=== PATIENT | male | born 1980 | race Hispanic/Latino ===

== ENCOUNTER 2018-06-17 23:25 | Emergency (ER) | payer SELFPAY ==
[~2018-06-17 23:25] MED LIST: ISOVUE-370 76%-LOCM 1 ML ONE
[2018-06-18 00:03] LABS: #Eosinphils 0.2 thou/uL (0.0-0.7); #Lymphocytes 2.9 thou/uL (1.20-3.40); #Monocytes 0.9 thou/uL (0.11-0.59); #Neutrophils 5.2 thou/uL (1.40-6.50); %Basophils 0.2 % (0.0-1.0); %Eosinophils 1.7 % (0.0-10.0); %Lymphocytes 31.7 % (21.0-51.0); %Monocytes 10.1 % (0.0-10.0); %Neutrophils 56.3 % (42.0-75.0); Hemoglobin 15.6 g/dL (14.0-18.0); Mean Corpuscular HGB CONC 36.5 g/dL (32.0-36.0); Mean Corpuscular Volume 87.8 fL (78.0-98.0); Mean Platelet Volume 7.4 fL (7.4-10.4); Platelet Count 198 thou/uL (130-400); RBC Distribution Width 11.8 % (11.5-14.5); Red Blood Cell (RBC) Count 4.88 mill/uL (4.70-6.10); White Blood Cell (WBC) Count 9.2 thou/uL (4.8-10.8)
[2018-06-18] MEDS ORDERED: Morphine 4 MG/ML VIAL ONE (00:09)
[2018-06-18 00:22] LABS: Glucose 113 mg/dL (70-105)
[2018-06-18 00:23] LABS: ALT (SGPT) 238 U/L (8-55); AST (SGOT) 108 U/L (5-34); Albumin 4.8 g/dL (3.5-5.0); Alkaline Phosphatase 91 U/L (40-150); Anion Gap 15 mmol/L (10-20); BUN (Urea Nitrogen) 22 mg/dL (8.9-20.6); Bilirubin, Total 0.7 mg/dL (0.2-1.2); Calc. Creatinine Clearance 0 mL/min (70-130); Calcium 9.5 mg/dL (7.8-10.44); Carbon Dioxide 21 mmol/L (22-29); Chloride 105 mmol/L (98-107); Estimated GFR-MDRD 65; Globulin 3.2 g/dL (2.4-3.5); Potassium 3.6 mmol/L (3.5-5.1); Sodium 137 mmol/L (136-145)
[2018-06-18 00:43] LABS: Bilirubin Negative (Negative); Blood, Urine Negative (Negative); Clarity CLEAR (Clear); Glucose, Urine (Dipstick) Negative (Negative); Leukocyte Negative (Negative); Nitrite Negative (Negative); Protein, Urine (Dipstick) Negative (Neg-Trace); Urobilinogen 0.2 mg/dL (0.2-1.0)
[2018-06-18 01:24] LABS: MONO NEGATIVE CONTROL ZONE White (Negative) (White); MONO POSITIVE CONTROL Pink Line (Positive) (PINK/RED); Mononucleosis NEGATIVE (NEGATIVE)
[2018-06-18 01:49] LABS: HBCM Index 0.11 S/CO (0-0.79); HBSAg Index 0.21 S/CO (0-0.99); Hep A IgM AB Non-Reactive (NonReactive); Hep A IgM S/CO 0.18 S/CO (0-0.79); Hep B Surf Ag Non-Reactive S/CO (NonReactive); Hep C IgG Ab Non-Reactive (NonReactive); Hep C Index 0.17 S/CO (0-0.79); Hepatitis B Core IGM Abs Non-Reactive (NonReactive)
--- NOTE | 2018-06-18 09:32 | CT ---
PRELIMINARY REPORT/[facility]/EMERGENTY AFTER-HOURS PROCEDURE CT Abdomen and Pelvis With Intravenous Contrast CLINICAL HISTORY: 37 years old, male; Pain; Abdominal pain; Localized; Lower; Patient HX: M37 presents with urinary ret ention x5 days. Pt reports he urinated once on wednesday. Pt also reports back pain, bilateral arm and leg weakness, and vomiting x2 days, and diarrhea x1 week. Pt reports chronic leg numbness and reports waking up with cold chills and sweat during the night 2 days ago. Pt reports numbness, tingli ng in groin 4-5 months ago that lasted a few minutes but denies any numbness or tingling to groin rec ently and denies impotence. Pt denies any drug use TECHNIQUE: Axial computed tomography images of the abdomen and pelvis with intravenous contrast. Coronal reformatted images were created and reviewed. COMPARISON: No relevant prior studies available. FINDINGS: Lung bases: Normal. No mass. No consolidation. ABDOMEN: Liver: Hepatic steatosis. Gallbladder and bile ducts: Normal. Pancreas: Normal. Spleen: Small low attenuation foci within the spleen, possibly cysts or hemangiomas. Adrenals: Normal. Kidneys and ureters: Normal. Stomach and bowel: Normal. PELVIS: Appendix: Appendix is normal. Bladder: Normal. Reproductive: Normal as visualized. ABDOMEN and PELVIS: Intraperitoneal space: Normal. No free air. No significant fluid collection. Bones/joints: No acute fracture. No dislocation. Soft tissues: Normal. Vasculature: Normal. No abdominal aortic aneurysm. Lymph nodes: Normal. IMPRESSION: 1. No acute findings. 2. Non-acute findings are described above. Thank you for allowing us to participate in the care of your patient. Dictated and Authenticated by: Julián Jasso MD 06/18/2018 1:14 AM Central Time ([place] & [place]) FINAL REPORT CT ABDOMEN AND PELVIS WITH IV CONTRAST: I agree with the preliminary report given by Dr. Julián Jasso of [facility]. POS: [facility]
--- NOTE | 2018-06-18 09:48 | MRI ---
PRELIMINARY REPORT/[facility]/EMERGENTY AFTER-HOURS PROCEDURE MR Lumbar Spine Without Intravenous Contrast CLINICAL HISTORY: 37 years old, male; Pain; Other: Cada equina syndrome; Patient HX: M37 presents with urinary retentio n x5 days. Pt reports he urinated once on wednesday. Pt also reports back pain, bilateral arm and leg w eakness, and vomiting x2 days, and diarrhea x1 week. Pt reports chronic leg numbness and reports waking up with cold chills and sweat during the night 2 days ago. Pt reports numbness, tingli ng in groin 4-5 months ago that lasted a few minutes but denies any numbness or tingling to groin rec ently and denies impotence. Pt denies any drug use. TECHNIQUE: Magnetic resonance images of the lumbar spine without intravenous contrast in multiple planes. COMPARISON: No relevant prior studies available. FINDINGS: Five non rib bearing vertbra are presumed to be present. Vertebral body heights are preserved. Normal lumbar lordosis without listhesis. Marrow signal is unremarkable. Mild disc height and signal loss at L1/L2 and L5/S1. Distal thoracic cord is normal in morphology and signal. Conus terminates normally at T12/L1. Soft tissues are unremarkable. T12/L1: No significant disc pathology, spinal canal stenosis or neuroforaminal narrowing. L1/L2: Minimal disc bulging without spinal canal stenosis. No neuroforaminal narrowing. L2/L3: No significant disc pathology, spinal canal stenosis or neuroforaminal narrowing. L3/L4: No significant disc pathology, spinal canal stenosis or neuroforaminal narrowing. L4/L5: Minimal disc bulging and facet arthrosis. No spinal canal stenosis or neuroforaminal narrowing . L5/S1: Disc bulge and facet arthrosis. Moderate bilateral neuroforaminal narrowing. No spinal canal s tenosis. IMPRESSION: 1. No spinal canal stenosis, nerve root impingement or cauda equina compression. 2. Moderate bilateral L5/S1 neuroforaminal narrowing due to disc bulge, disc height loss and facet ar throsis. Thank you for allowing us to participate in the care of your patient. Dictated and Authenticated by: Santos Zimmerman MD 06/18/2018 3:56 AM Central Time ([place] & [place]) FINAL REPORT MRI LUMBAR SPINE WITHOUT CONTRAST: I agree with the preliminary report given by Dr. Zimmerman of [facility]. POS: [facility]
== END 2018-06-18 04:28 | disposition home or self-care (01) ==
LOC: ERS 23:25
DX: M54.5 Low back pain (principal); E86.0 Dehydration; R30.0 Dysuria
CPT/HCPCS: 36415; 72148; 74177; 80053; 80074; 81003; 85025; 85652; 86140; 86308; 96361; 96374; J2270

== ENCOUNTER 2019-06-22 17:59 | Emergency (ER) | payer BC, SELFPAY ==
[2019-06-22 18:51] LABS: Bilirubin Negative (Negative); Blood, Urine Negative (Negative); Clarity Clear (Clear); Glucose, Urine (Dipstick) Normal (Negative); Leukocyte Negative Leu/uL (Negative); Nitrite Negative (Negative); Protein, Urine (Dipstick) Negative (Neg-Trace); Urobilinogen Normal mg/dL (Less than 2)
[2019-06-22 19:05] LABS: #Basophils 0.1 thou/uL (0.0-0.2); #Eosinphils 0.2 thou/uL (0.0-0.7); #Lymphocytes 2.7 thou/uL (1.20-3.40); #Monocytes 0.7 thou/uL (0.11-0.59); #Neutrophils 6.2 thou/uL (1.40-6.50); %Basophils 0.6 % (0.0-1.0); %Eosinophils 1.8 % (0.0-10.0); %Lymphocytes 27.5 % (21.0-51.0); %Monocytes 6.7 % (0.0-10.0); %Neutrophils 63.4 % (42.0-75.0); Hemoglobin 15.1 g/dL (14.0-18.0); Mean Corpuscular HGB CONC 35.6 g/dL (32.0-36.0); Mean Platelet Volume 7.9 fL (7.4-10.4); Platelet Count 223 thou/uL (130-400); RBC Distribution Width 11.7 % (11.5-14.5); Red Blood Cell (RBC) Count 4.72 mill/uL (4.70-6.10); White Blood Cell (WBC) Count 9.7 thou/uL (4.8-10.8)
[2019-06-22 19:22] LABS: ALT (SGPT) 124 U/L (8-55); AST (SGOT) 49 U/L (5-34); Albumin 4.5 g/dL (3.5-5.0); Alkaline Phosphatase 74 U/L (40-150); Anion Gap 14 mmol/L (10-20); BUN (Urea Nitrogen) 17 mg/dL (8.9-20.6); Bilirubin, Total 0.4 mg/dL (0.2-1.2); Calc. Creatinine Clearance 0 mL/min (70-130); Calcium 9.5 mg/dL (7.8-10.44); Carbon Dioxide 24 mmol/L (22-29); Chloride 104 mmol/L (98-107); Estimated GFR-MDRD 87; Glucose 99 mg/dL (70-105); Potassium 3.8 mmol/L (3.5-5.1); Protein, Total 7.5 g/dL (6.0-8.3); Sodium 138 mmol/L (136-145)
--- NOTE | 2019-06-22 19:52 | CT ---
CT abdomen and pelvis performed without contrast enhancement: HISTORY: Abdominal pain nausea vomiting and diarrhea. COMPARISON: None. FINDINGS: The lung bases are clear. The liver spleen pancreas and gallbladder regions appear unremark able on this noncontrast study. The liver does measure 22 cm in length but this is mainly related to somewhat elongated appearing right lobe. Right and left adrenal glands and right and left kidneys are normal in size. There is no significant periaortic or mesenteric adenopathy. No bowel wall abnormalities. CT of pelvis performed without contrast enhancement: The appendix is normal. There is no evidence of adenopathy, mass or free fluid. Review of osseous structures show no findings. IMPRESSION: Unremarkable CT of the abdomen and pelvis.
[2019-06-22] MEDS ORDERED: Ketorolac Tromethamine 60 MG/2 ML VIAL ONE (20:18)
== END 2019-06-22 20:30 | disposition home or self-care (01) ==
LOC: ERS 17:59
DX: R10.9 Unspecified abdominal pain (principal); R94.5 Abnormal results of liver function studies
CPT/HCPCS: 36415; 74176; 80053; 81003; 85025; 96372; J1885

== ENCOUNTER 2020-08-24 20:57 | Observation (INO) | payer BC, OTHER ==
[2020-08-24 21:31] LABS: #Lymphocytes 1.5 thou/uL (1.20-3.40); #Monocytes 0.4 thou/uL (0.11-0.59); #Neutrophils 3.9 thou/uL (1.40-6.50); %Basophils 0.2 % (0.0-1.0); %Eosinophils 0.1 % (0.0-10.0); %Lymphocytes 25.2 % (21.0-51.0); %Monocytes 6.4 % (0.0-10.0); %Neutrophils 68.1 % (42.0-75.0); Hemoglobin 16.3 g/dL (14.0-18.0); Mean Corpuscular HGB CONC 35.9 g/dL (32.0-36.0); Mean Corpuscular Hemoglobin 31.8 pg (27.0-31.0); Mean Corpuscular Volume 88.3 fL (78.0-98.0); Mean Platelet Volume 8.7 fL (7.4-10.4); Platelet Count 168 thou/uL (130-400); RBC Distribution Width 11.5 % (11.5-14.5); Red Blood Cell (RBC) Count 5.13 mill/uL (4.70-6.10); White Blood Cell (WBC) Count 5.8 thou/uL (4.8-10.8)
[2020-08-24] MEDS ORDERED: Acetaminophen 500 MG TAB ONE (21:43)
[2020-08-24] MEDS ORDERED: Azithromycin 250 MG TAB ONE (21:45)
[2020-08-24] MEDS ORDERED: cefTRIAXone\\ROCEPHIN 1 GM VIAL ONE (21:45)
--- NOTE | 2020-08-24 21:51 | RAD ---
Portable frontal chest radiograph: 08/24/2020 COMPARISON: 12/25/2016 HISTORY: Covid positive patient with chest pressure FINDINGS: No pneumothorax or pleural fluid. No focal consolidation or alveolar edema. There is subtle patchy opacity noted in the right lung base which could signify change associated wit h atypical infectious pneumonitis. IMPRESSION: No focal consolidation or alveolar edema. Minimal patchy opacity in the right lung base.
[2020-08-24 21:53] LABS: ALT (SGPT) 224 U/L (8-55); AST (SGOT) 93 U/L (5-34); Albumin 4.3 g/dL (3.5-5.0); Alkaline Phosphatase 63 U/L (40-110); Anion Gap 16 mmol/L (10-20); BUN (Urea Nitrogen) 10 mg/dL (8.9-20.6); Bilirubin, Total 0.7 mg/dL (0.2-1.2); Calc. Creatinine Clearance 0 mL/min (70-130); Calcium 8.8 mg/dL (7.8-10.44); Carbon Dioxide 19 mmol/L (22-29); Chloride 101 mmol/L (98-107); Estimated GFR-MDRD 86; Globulin 3.7 g/dL (2.4-3.5); Glucose 132 mg/dL (70-105); Potassium 3.8 mmol/L (3.5-5.1); Sodium 132 mmol/L (136-145)
[2020-08-24 23:29] LABS: Bacteria/HPF None Seen HPF (None Seen); Bilirubin Negative (Negative); Blood, Urine Negative (Negative); Clarity Clear (Clear); Glucose, Urine (Dipstick) Normal (Negative); Ketone, Urine Negative (Negative); Leukocyte Negative Leu/uL (Negative); Nitrite Negative (Negative); Protein, Urine (Dipstick) 30 mg/dL (Neg-Trace); RBC/HPF None Seen HPF (0-3); Specific Gravity, Urine 1.012 (1.002-1.036); Squamous Epithelial None Seen HPF (0-3); Urobilinogen Normal mg/dL (Less than 2); WBC/HPF 0-3 HPF (0-3)
--- NOTE | 2020-08-25 00:09 | PDOC.HHP ---
Hospitalist HPI - History of Present Illness Generalized weakness and shortness of breath History of Present Illness: 39-year-old gentleman with no known past medical history presented emergency department with a complaint of generalized weakness and progressive shortness of breath. He also reports nonproductive cough. He tested positive for COVID-19 on August 20, 2020. Patient was concerned he was getting worse for the COVID infection and therefore presented to the emergency department. Fever of 100.9 was recorded in the ED, patient noted to be tachycardic and tachypneic, lactic acid is elevated at 2.5 and he meets criteria for sepsis. He has no leukocytosis and was saturating well on room air, not requiring oxygen. Patient is hospitalized for COVID infection with sepsis. Hospitalist ROS - Review of Systems Other: He denied any diarrhea, no abdominal pain, no chest pain. No nausea or vomiting. Except as documented, all other systems reviewed and negative. - Medication Medications: Medication Instructions Recorded Confirmed Type No Known 08/25/20 08/25/20 History Hospitalist History - Past Medical History Cardiac: reports: no pertinent history - Past Surgical History Other Surgical History: Knee surgery during childhood. - Family History Family History: reports: diabetes mellitus (Father.) - Social History Smoking Status: Never smoker Alcohol: reports: Occassional Drugs: reports: none - Exam General Appearance: NAD, awake alert Eye: PERRL, anicteric sclera ENT: normocephalic atraumatic, no oropharyngeal lesions, moist mucosa Neck: supple, no JVD Heart: RRR (Tachycardia), no murmur, no gallops Respiratory: CTAB, no wheezes, no rales Gastrointestinal: soft, non-tender, non-distended, normal bowel sounds Extremities: no cyanosis, no edema Skin: normal turgor, no rashes Neurological: cranial nerve grossly intact, no weakness, no focal deficits Musculoskeletal: normal tone, normal strength Psychiatric: normal affect, normal behavior, A&O x 3 Hospitalist Results - Labs Result Diagrams: 08/25/20 05:05 08/25/20 05:05 Lab results: WBC 5.8 thou/uL (4.8-10.8) 08/24/20 21:19 Hgb 16.3 g/dL (14.0-18.0) 08/24/20 21:19 Hct 45.3 % (42.0-52.0) 08/24/20 21:19 MCV 88.3 fL (78.0-98.0) 08/24/20 21:19 Plt Count 168 thou/uL (130-400) 08/24/20 21:19 Neutrophils % 68.1 % (42.0-75.0) 08/24/20 21:19 Sodium 132 mmol/L (136-145) L 08/24/20 21:19 Potassium 3.8 mmol/L (3.5-5.1) 08/24/20 21:19 Chloride 101 mmol/L (98-107) 08/24/20 21:19 Carbon Dioxide 19 mmol/L (22-29) L 08/24/20 21:19 BUN 10 mg/dL (8.9-20.6) 08/24/20 21:19 Creatinine 0.98 mg/dL (0.7-1.3) 08/24/20 21:19 Glucose 132 mg/dL (70-105) H 08/24/20 21:19 Lactic Acid 2.5 mmol/L (0.5-2.2) H 08/24/20 21:19 Calcium 8.8 mg/dL (7.8-10.44) 08/24/20 21:19 Total Bilirubin 0.7 mg/dL (0.2-1.2) 08/24/20 21:19 AST 93 U/L (5-34) H 08/24/20 21:19 ALT 224 U/L (8-55) H 08/24/20 21:19 Alkaline Phosphatase 63 U/L (40-110) 08/24/20 21:19 Serum Total Protein 8.0 g/dL (6.0-8.3) 08/24/20 21:19 Albumin 4.3 g/dL (3.5-5.0) 08/24/20 21:19 Urine Ketones Negative mg/dL (Negative) 08/24/20 23:14 Urine Blood Negative (Negative) 08/24/20 23:14 Urine Nitrite Negative (Negative) 08/24/20 23:14 Ur Leukocyte Esterase Negative Qian/uL (Negative) 08/24/20 23:14 Urine RBC None Seen HPF (0-3) 08/24/20 23:14 Urine WBC 0-3 HPF (0-3) 08/24/20 23:14 Ur Squamous Epith Cells None Seen HPF (0-3) 08/24/20 23:14 Urine Bacteria None Seen HPF (None Seen) 08/24/20 23:14 - Radiology Interpretation Chest x-ray Status: report reviewed by me (Minimal patchy opacity in the right lung base.) Hospitalist H&P A/P - Problem (1) Pneumonia due to COVID-19 virus Code(s): U07.1 - COVID-19; J12.89 - OTHER VIRAL PNEUMONIA Status: Acute (2) Sepsis Code(s): A41.9 - SEPSIS, UNSPECIFIED ORGANISM Status: Acute - Plan Plan: Place patient under observation. Hydrate with IV normal saline given sepsis. Recheck lactic acid. Start empiric IV Zithromax. Start oral dexamethasone. Supplemental oxygen as needed. Follow blood cultures.
[2020-08-25 00:48] LABS: Lactic Acid 0.9 mmol/L (0.5-2.2)
[2020-08-25] MEDS: Sodium Chloride 0.9% 1,000 ML IV SCH ×2 (02:25→13:28)
[2020-08-25] MEDS ORDERED: Acetaminophen 325 MG TAB PO PRN (02:54)
[2020-08-25] MEDS ORDERED: Ondansetron PF 4 MG/2 ML Vial IVP PRN (04:33)
[2020-08-25 05:18] LABS: #Lymphocytes 1.4 thou/uL (1.20-3.40); #Monocytes 0.5 thou/uL (0.11-0.59); #Neutrophils 2.7 thou/uL (1.40-6.50); %Basophils 0.5 % (0.0-1.0); %Eosinophils 0.4 % (0.0-10.0); %Lymphocytes 29.7 % (21.0-51.0); %Neutrophils 59.4 % (42.0-75.0); Hemoglobin 14.2 g/dL (14.0-18.0); Mean Corpuscular Hemoglobin 31.4 pg (27.0-31.0); Mean Corpuscular Volume 89.6 fL (78.0-98.0); Mean Platelet Volume 8.5 fL (7.4-10.4); Platelet Count 145 thou/uL (130-400); RBC Distribution Width 11.7 % (11.5-14.5); Red Blood Cell (RBC) Count 4.53 mill/uL (4.70-6.10); White Blood Cell (WBC) Count 4.6 thou/uL (4.8-10.8)
[2020-08-25 05:42] LABS: Anion Gap 13 mmol/L (10-20); BUN (Urea Nitrogen) 9 mg/dL (8.9-20.6); Calc. Creatinine Clearance 0 mL/min (70-130); Calcium 8.3 mg/dL (7.8-10.44); Carbon Dioxide 20 mmol/L (22-29); Chloride 107 mmol/L (98-107); Estimated GFR-MDRD Greater than 90; Glucose 133 mg/dL (70-105); Potassium 3.9 mmol/L (3.5-5.1); Sodium 136 mmol/L (136-145)
[2020-08-25 07:44] VITALS: BMI 34.3
[2020-08-25] MEDS ORDERED: Dexamethasone 4 MG TAB PO SCH (08:00)
[2020-08-25] MEDS ORDERED: Enoxaparin Sodium 40 MG/0.4 ML SYRINGE SC SCH (09:00)
[2020-08-25 10:38] VITALS: BP 127/60; TEMP 97.9
[2020-08-25] MEDS ORDERED: FLU VACC QS2020-21(6MOS UP)/PF 60 MCG/0.5 ML SYRINGE IM ONE (12:00)
[2020-08-25] MEDS ORDERED: Azithromycin 500 MG in Sodium Chloride 0.9% 250 ML 250 ML IVPB SCH (22:00)
--- NOTE | 2020-08-25 23:46 | DIS ---
DATE OF ADMISSION: 08/24/2020 DATE OF DISCHARGE: 08/25/2020 DISCHARGE DIAGNOSES: 1. COVID-19 infection. 2. Dehydration. 3. Lactic acidosis. 4. Sepsis, ruled out. DISCHARGE MEDICATIONS: No new discharge medications. HISTORY OF PRESENT ILLNESS AND HOSPITAL COURSE: The patient is a 39-year-old male with no significant past medical history, who presented to the hospital with complaints of shortness of breath and generalized weakness. The patient also reported nonproductive cough. He tested positive for COVID-19 on August 20. In the ER, he was found to be febrile and tachycardic. His lactic acid was elevated at 2.5. The patient was placed in observation. He was managed with IV fluids and received a dose of IV azithromycin. The patient's lactic acid returned to normal. He remained stable and was saturating well on room air throughout his hospital stay. At this time, the patient does not meet criteria for further treatment for COVID-19 other than supportive care with Tylenol at home. He will be discharged with indication material about COVID-19 and dehydration. Job ID: [id number]
== END 2020-08-25 13:33 | disposition home or self-care (01) ==
LOC: ERS 20:57 → 2SW 23:08
PROVIDERS: ADMIT Internal Medicine; ATTEND Internal Medicine
DX: U07.1 COVID-19 (principal); J12.89 Other viral pneumonia; E86.0 Dehydration; E87.2 Acidosis
CPT/HCPCS: 36415; 71045; 80048; 80053; 81003; 81015; 83605; 85025; 87040; 87086; 90471; 90662; 93005; 96361; 96365; 96372; 96375; G0008; G0378; J0696; J1650; J2405

== ENCOUNTER 2021-11-03 01:19 | Emergency (ER) | payer BC ==
[2021-11-03 02:32] LABS: #Lymphocytes 1.5 thou/uL (1.20-3.40); #Monocytes 0.6 thou/uL (0.11-0.59); #Neutrophils 7.7 thou/uL (1.40-6.50); %Basophils 0.1 % (0.0-1.0); %Eosinophils 0.5 % (0.0-10.0); %Neutrophils 78.4 % (42.0-75.0); Hemoglobin 16.3 g/dL (14.0-18.0); Mean Corpuscular HGB CONC 36.4 g/dL (32.0-36.0); Mean Corpuscular Volume 90.6 fL (78.0-98.0); Platelet Count 214 thou/uL (130-400); RBC Distribution Width 11.8 % (11.5-14.5); Red Blood Cell (RBC) Count 4.93 mill/uL (4.70-6.10); White Blood Cell (WBC) Count 9.9 thou/uL (4.8-10.8)
[2021-11-03 02:35] LABS: Amphetamine Not Detected (NotDetected); Barbiturates Screen Not Detected (NotDetected); Benzodiazepine Screen Not Detected (NotDetected); Cocaine Metabolite Screen Not Detected (NotDetected); Methadone Not Detected (NotDetected); Methamphetamine Not Detected (NotDetected); Opiate Screen Not Detected (NotDetected); Oxycodone Screen Not Detected (NotDetected); Phencyclidine (PCP) Not Detected (NotDetected); THC/Cannabinoid Screen Not Detected (NotDetected); Tricyclic Screen Not Detected (NotDetected)
[2021-11-03 02:42] LABS: ALT (SGPT) 174 U/L (8-55); AST (SGOT) 92 U/L (5-34); Albumin 4.2 g/dL (3.5-5.0); Alkaline Phosphatase 83 U/L (40-110); Anion Gap 15 mmol/L (10-20); BUN (Urea Nitrogen) 14 mg/dL (8.9-20.6); Bilirubin, Total 0.4 mg/dL (0.2-1.2); Calc. Creatinine Clearance 0 mL/min (70-130); Calcium 9.5 mg/dL (7.8-10.44); Carbon Dioxide 21 mmol/L (22-29); Chloride 106 mmol/L (98-107); Globulin 3.5 g/dL (2.4-3.5); Glucose 142 mg/dL (70-105); Potassium 4.1 mmol/L (3.5-5.1); Protein, Total 7.7 g/dL (6.0-8.3); Sodium 138 mmol/L (136-145)
[2021-11-03 13:42] LABS: SARS-CoV-2 PCR by NAA DETECTED (NotDetected)
== END 2021-11-03 04:08 | disposition home or self-care (01) ==
LOC: ERS 01:19
DX: U07.1 COVID-19 (principal); R00.2 Palpitations
CPT/HCPCS: 36415; 71045; 80053; 80306; 84484; 85025; 85379; 93005; U0003; U0005

== ENCOUNTER 2023-06-07 17:46 | Emergency (ER) | payer SELFPAY ==
[2023-06-07] MEDS ORDERED: Albuterol 200 PUFF (6.7GM INHALER) INH SCH (18:45)
== END 2023-06-07 19:50 | disposition home or self-care (01) ==
LOC: ERS 17:46
DX: J45.901 Unspecified asthma with (acute) exacerbation (principal)
CPT/HCPCS: 71046

== ENCOUNTER 2023-06-20 00:01 | Emergency (ER) | payer OTHER, SELFPAY ==
[2023-06-20] MEDS ORDERED: Ketorolac Tromethamine 30 MG/ML VIAL ONE (01:07)
[2023-06-20] MEDS ORDERED: Dexameth. Sod Phosp. 10 MG/ML (CHEMO USE ONLY) ONE (01:09)
== END 2023-06-20 01:39 | disposition home or self-care (01) ==
LOC: ERS 00:01
DX: R07.89 Other chest pain (principal)
CPT/HCPCS: 71045; 93005; 96372; J1100; J1885

== ENCOUNTER 2023-09-05 10:10 | Emergency (ER) | payer OTHER, SELFPAY ==
[2023-09-05 11:21] LABS: #Eosinphils 0.1 thou/uL (0.0-0.7); #Monocytes 0.4 thou/uL (0.11-0.59); #Neutrophils 4.5 thou/uL (1.40-6.50); %Basophils 0.3 % (0.0-1.0); %Eosinophils 1.3 % (0.0-10.0); %Lymphocytes 27.7 % (21.0-51.0); %Monocytes 5.4 % (0.0-10.0); %Neutrophils 64.7 % (42.0-75.0); Hematocrit 42.6 % (42.0-52.0); Hemoglobin 15.5 g/dL (14.0-18.0); Mean Corpuscular HGB CONC 36.4 g/dL (32.0-36.0); Mean Corpuscular Hemoglobin 30.9 pg (27.0-31.0); Mean Platelet Volume 10.2 fL (7.4-10.4); Platelet Count 215 10x3/uL (130-400); RBC Distribution Width 12.5 % (11.5-14.5); Red Blood Cell (RBC) Count 5.01 mill/uL (4.70-6.10); White Blood Cell (WBC) Count 6.9 10x3/uL (4.8-10.8)
[2023-09-05] MEDS ORDERED: Ondansetron PF 4 MG/2 ML Vial ONE (11:26)
[2023-09-05] MEDS ORDERED: Meclizine HCl 25 MG TAB ONE (11:26)
[2023-09-05 11:38] LABS: Anion Gap 15 mmol/L (10-20); BUN (Urea Nitrogen) 16 mg/dL (8.9-20.6); Bilirubin, Total 0.5 mg/dL (0.2-1.2); Calc. Creatinine Clearance 0 mL/min (70-130); Carbon Dioxide 22 mmol/L (22-29); Chloride 106 mmol/L (98-107); Estimated GFR 112; Glucose 144 mg/dL (70-105); Potassium 3.8 mmol/L (3.5-5.1); Sodium 139 mmol/L (136-145)
[2023-09-05 11:39] LABS: ALT (SGPT) 33 U/L (8-55); AST (SGOT) 19 U/L (5-34); Albumin 4.6 g/dL (3.5-5.0); Alkaline Phosphatase 65 U/L (40-110); Globulin 2.8 g/dL (2.4-3.5); Protein, Total 7.4 g/dL (6.0-8.3)
== END 2023-09-05 13:48 | disposition home or self-care (01) ==
LOC: ERS 10:10
DX: R42 Dizziness and giddiness (principal); E86.0 Dehydration; R29.700 NIHSS score 0; Y92.511 Restaurant or cafe as the place of occurrence of the external cause
CPT/HCPCS: 70450; 71045; 80053; 85025; 93005; 94760; 96361; 96374; J2405

== ENCOUNTER 2024-06-30 05:42 | Emergency (ER) | payer SELFPAY ==
[2024-06-30 06:14] LABS: #Basophils Less than 0.03 10x3/uL (0.0-0.2); %Basophils 0.1 % (0.0-1.0); %Eosinophils 1.2 % (0.0-10.0); %Lymphocytes 35.3 % (21.0-51.0); %Monocytes 7.3 % (0.0-10.0); %Neutrophils 55.7 % (42.0-75.0); Hematocrit 42.5 % (42.0-52.0); Mean Corpuscular HGB CONC 35.3 g/dL (32.0-36.0); Mean Corpuscular Hemoglobin 30.9 pg (27.0-31.0); Mean Corpuscular Volume 87.4 fL (78.0-98.0); Mean Platelet Volume 10.4 fL (7.4-10.4); Platelet Count 211 10x3/uL (130-400); RBC Distribution Width 12.5 % (11.5-14.5); Red Blood Cell (RBC) Count 4.86 mill/uL (4.70-6.10)
[2024-06-30 06:32] LABS: ALT (SGPT) 19 U/L (8-55); AST (SGOT) 12 U/L (5-34); Albumin 4.2 g/dL (3.5-5.0); Alkaline Phosphatase 68 U/L (40-110); Anion Gap 12 mmol/L (10-20); BUN (Urea Nitrogen) 20 mg/dL (8.9-20.6); Bilirubin, Total 0.4 mg/dL (0.2-1.2); Calc. Creatinine Clearance 0 mL/min (70-130); Calcium 9.1 mg/dL (7.8-10.44); Carbon Dioxide 24 mmol/L (22-29); Chloride 110 mmol/L (98-107); Estimated GFR 111; Glucose 106 mg/dL (70-105); Lipase 32 U/L (8-78); Potassium 4.1 mmol/L (3.5-5.1); Protein, Total 7.2 g/dL (6.0-8.3); Sodium 142 mmol/L (136-145)
[2024-06-30 07:28] LABS: Bacteria/HPF None Seen HPF (None Seen); Bilirubin Negative (Negative); Blood, Urine Negative (Negative); CAUTI Indications for Culture Pelvic or flank pain; Clarity Clear (Clear); Glucose, Urine (Dipstick) Normal (Negative); Ketone, Urine Negative (Negative); Leukocyte Negative Leu/uL (Negative); Nitrite Negative (Negative); Protein, Urine (Dipstick) Negative (Neg-Trace); RBC/HPF 0-3 HPF (0-3); Specific Gravity, Urine 1.028 (1.002-1.036); Squamous Epithelial 0-3 HPF (0-3); Urobilinogen Normal mg/dL (Less than 2); WBC/HPF 0-3 HPF (0-3); pH, Urine 5.5 (5.0-9.0)
[2024-06-30 07:43] LABS: Urine Culture Reflex No No
[2024-06-30 07:46] LABS: Troponin I Less than 0.010 ng/mL (< 0.028)
[2024-06-30] MEDS ORDERED: Iopamidol-370 76% 500 ML MDV (1 ML CHARGE) ONE (10:40)
== END 2024-06-30 08:27 | disposition home or self-care (01) ==
LOC: ERS 05:42
DX: R10.32 Left lower quadrant pain (principal)
CPT/HCPCS: 36415; 71045; 74177; 80053; 81001; 83690; 83880; 84484; 85025; 93005; Q9967